=== PATIENT | female | born 1975 | race Caucasian/White ===

== ENCOUNTER 2020-04-10 07:56 | Outpatient (REF) | payer BC, SELFPAY ==
[2020-04-10 11:23] LABS: MANUAL DIFF FLAG NO
[2020-04-10 11:32] LABS: Basophils Percent Auto 0.6 % (0-2); Eosinophils Absolute Auto 0.2 X10*3/uL (0.0-0.4); Eosinophils Percent Auto 2.3 % (0-4); Hematocrit 43.4 % (37-47); Hemoglobin 14.7 g/dl (12.0-16.0); Imm Gran Abs Auto 0.02 X10*3/uL (0.00-0.03); Imm Gran Pct Auto 0.3 % (0.0-0.4); Lymphocytes Absolute Auto 2.3 X10*3/uL (1.2-4.9); Mean Corpuscular HGB Conc 33.9 g/dl (31.0-35.0); Mean Corpuscular Hemoglobin 30.5 pg (27.0-33.0); Mean Platelet Volume 10.3 fL (9.4-12.3); Monocytes Absolute Auto 0.4 X10*3/uL (0.1-1.2); Monocytes Percent Auto 5.9 % (2-11); Neutrophils Absolute Auto 4.1 X10*3/uL (2.0-8.3); Neutrophils Percent Auto 57.9 % (45-73); Platelet Count 294 X10*3/uL (160-400); Red Blood Count 4.82 X10*6/uL (4.20-5.50); Red Cell Distribution Width 12.3 % (11.0-16.0)
[2020-04-10 11:47] LABS: Alanine Aminotransferase 14 U/L (0-31); Albumin Level 4.4 g/dL (3.5-5.0); Alkaline Phosphatase 49 U/L (39-117); Anion Gap 12 (12-20); Aspartate Amino Transferase 11 U/L (5-31); Bilirubin Total 0.8 mg/dL (0.0-1.0); Blood Urea Nitrogen 12 mg/dL (9-16); Calcium 8.8 mg/dL (8.4-10.2); Carbon Dioxide 26 mmol/L (22-29); Chloride 108 mmol/L (96-108); Cholesterol 163 mg/dL; Estimated Glomerular Filt Rate > 60; Glucose Fasting 95 mg/dL (60-99); HDL Cholesterol 36 mg/dL; LDL Cholesterol Calculated 99 mg/dl; Potassium 4.1 mmol/l (3.3-5.1); Sodium 142 mmol/L (135-145); Total Protein 7.1 g/dL (6.5-8.0); Triglycerides 144 mg/dL
[2020-04-10 11:59] LABS: Free T4 (Free Thyroxine) 1.12 ng/dL (0.71-1.85); Thyroid Stimulating Hormone 2.19 uIU/mL (0.32-4.0)
== END 2020-04-10 07:57 | disposition home or self-care (01) ==
LOC: HO.HMGCLDS 07:56
PROVIDERS: PCP Internal Medicine; Visit Provider Internal Medicine
DX: Z00.00 Encounter for general adult medical examination without abnormal findings (principal); E03.9 Hypothyroidism, unspecified
CPT/HCPCS: 36415; 80053; 80061; 84439; 84443; 85025

== ENCOUNTER 2021-09-16 09:08 | Outpatient (REF) | payer BC, SELFPAY ==
[2021-09-16 11:42] LABS: MANUAL DIFF FLAG NO
[2021-09-16 12:02] LABS: Basophils Absolute Auto 0.1 X10*3/uL (0.0-0.2); Basophils Percent Auto 0.8 % (0-2); Eosinophils Absolute Auto 0.1 X10*3/uL (0.0-0.4); Eosinophils Percent Auto 1.8 % (0-4); Hematocrit 43.5 % (37.0-47.0); Hemoglobin 14.5 g/dl (12.0-16.0); Imm Gran Abs Auto 0.02 X10*3/uL (0.00-0.03); Imm Gran Pct Auto 0.3 % (0.0-0.4); Lymphocytes Percent Auto 33.9 % (20-40); Mean Corpuscular HGB Conc 33.3 g/dl (31.0-35.0); Mean Corpuscular Volume 89.9 fL (80.0-98.0); Mean Platelet Volume 10.7 fL (9.4-12.3); Monocytes Absolute Auto 0.4 X10*3/uL (0.1-1.2); Monocytes Percent Auto 6.7 % (2-11); Neutrophils Absolute Auto 3.4 x10*3/uL (2.0-8.3); Neutrophils Percent Auto 56.5 % (45-73); Platelet Count 268 X10*3/uL (160-400); Red Blood Count 4.84 X10*6/uL (4.20-5.50); Red Cell Distribution Width 12.6 % (11.0-16.0)
[2021-09-16 12:47] LABS: Alanine Aminotransferase 12 U/L (0-31); Albumin Level 4.4 g/dL (3.5-5.0); Alkaline Phosphatase 47 U/L (39-117); Aspartate Amino Transferase 12 U/L (5-31); Blood Urea Nitrogen 12 mg/dL (9-16); Calcium 8.7 mg/dL (8.4-10.2); Cholesterol 176 mg/dL; Estimated Glomerular Filt Rate > 60; Glucose Fasting 102 mg/dL (60-99); HDL Cholesterol 35 mg/dL; LDL Cholesterol Calculated 102 mg/dl; Total Protein 7.2 g/dL (6.5-8.0); Triglycerides 197 mg/dL
[2021-09-16 12:53] LABS: Free T4 (Free Thyroxine) 1.21 ng/dL (0.71-1.85)
[2021-09-16 12:58] LABS: Anion Gap 14 (12-20); Carbon Dioxide 25 mmol/L (22-29); Chloride 108 mmol/L (96-108); Potassium 4.5 mmol/L (3.3-5.1); Sodium 142 mmol/L (135-145)
== END 2021-09-16 09:09 | disposition home or self-care (01) ==
LOC: HO.HMGCLDS 09:08
PROVIDERS: PCP Internal Medicine; Visit Provider Internal Medicine
DX: I10 Essential (primary) hypertension (principal); E03.9 Hypothyroidism, unspecified
CPT/HCPCS: 36415; 80053; 80061; 84439; 84443; 85025

== ENCOUNTER 2022-04-06 09:43 | Outpatient (REF) | payer BC, SELFPAY ==
[2022-04-06 10:31] LABS: MANUAL DIFF FLAG NO
[2022-04-06 10:41] LABS: Basophils Absolute Auto 0.1 X10*3/uL (0.0-0.2); Basophils Percent Auto 0.7 % (0-2); Eosinophils Absolute Auto 0.1 X10*3/uL (0.0-0.4); Eosinophils Percent Auto 1.9 % (0-4); Hematocrit 42.3 % (37.0-47.0); Hemoglobin 14.4 g/dl (12.0-16.0); Imm Gran Abs Auto 0.01 X10*3/uL (0.00-0.03); Imm Gran Pct Auto 0.1 % (0.0-0.4); Lymphocytes Absolute Auto 2.1 X10*3/uL (1.2-4.9); Lymphocytes Percent Auto 31.7 % (20-40); Mean Corpuscular Hemoglobin 30.3 pg (27.0-33.0); Mean Corpuscular Volume 88.9 fL (80.0-98.0); Mean Platelet Volume 9.8 fL (9.4-12.3); Monocytes Absolute Auto 0.4 X10*3/uL (0.1-1.2); Monocytes Percent Auto 6.2 % (2-11); Neutrophils Percent Auto 59.4 % (45-73); Platelet Count 243 X10*3/uL (160-400); Red Blood Count 4.76 X10*6/uL (4.20-5.50); Red Cell Distribution Width 12.6 % (11.0-16.0); White Blood Count 6.8 X10*3/uL (4.8-10.8)
[2022-04-06 11:15] LABS: Anion Gap 8 (12-20); Blood Urea Nitrogen 9 mg/dL (9-16); Calcium 8.8 mg/dL (8.4-10.2); Carbon Dioxide 28 mmol/L (22-29); Chloride 109 mmol/L (96-108); Estimated Glomerular Filt Rate > 60; Glucose Random 102 mg/dL (60-115); Potassium 4.2 mmol/L (3.3-5.1); Sodium 141 mmol/L (135-145)
[2022-04-06 11:34] LABS: Vitamin B12 411 pg/mL (200-900)
== END 2022-04-06 09:44 | disposition home or self-care (01) ==
LOC: HO.10HDL 09:43
PROVIDERS: Visit Provider Internal Medicine
DX: I10 Essential (primary) hypertension (principal); E03.9 Hypothyroidism, unspecified; R53.83 Other fatigue
CPT/HCPCS: 36415; 80048; 82607; 84439; 84443; 85025

== ENCOUNTER 2023-01-15 12:28 | Outpatient (REF) | payer BC, SELFPAY ==
[2023-01-15 13:32] LABS: MANUAL DIFF FLAG NO
[2023-01-15 13:53] LABS: Basophils Absolute Auto 0.1 X10*3/uL (0.0-0.2); Basophils Percent Auto 0.5 % (0-2); Eosinophils Absolute Auto 0.1 X10*3/uL (0.0-0.4); Eosinophils Percent Auto 0.8 % (0-4); Hematocrit 38.8 % (37.0-47.0); Hemoglobin 13.4 g/dl (12.0-16.0); Imm Gran Abs Auto 0.04 X10*3/uL (0.00-0.03); Imm Gran Pct Auto 0.4 % (0.0-0.4); Lymphocytes Absolute Auto 1.8 X10*3/uL (1.2-4.9); Lymphocytes Percent Auto 17.1 % (20-40); Mean Corpuscular HGB Conc 34.5 g/dl (31.0-35.0); Mean Corpuscular Volume 89.8 fL (80.0-98.0); Mean Platelet Volume 10.2 fL (9.4-12.3); Monocytes Absolute Auto 0.6 X10*3/uL (0.1-1.2); Monocytes Percent Auto 5.3 % (2-11); Neutrophils Absolute Auto 8.1 x10*3/uL (2.0-8.3); Neutrophils Percent Auto 75.9 % (45-73); Platelet Count 277 X10*3/uL (160-400); Red Blood Count 4.32 X10*6/uL (4.20-5.50); Red Cell Distribution Width 12.6 % (11.0-16.0); White Blood Count 10.7 X10*3/uL (4.8-10.8)
[2023-01-15 14:42] LABS: Anion Gap 12 (12-20); Blood Urea Nitrogen 13 mg/dL (9-16); Calcium 10.1 mg/dL (8.4-10.2); Carbon Dioxide 25 mmol/L (22-29); Chloride 107 mmol/L (96-108); Cholesterol 175 mg/dL (<200); Estimated Glomerular Filt Rate > 60; Glucose Random 109 mg/dL (60-115); Sodium 140 mmol/L (135-145)
[2023-01-15 14:47] LABS: Free T4 (Free Thyroxine) 1.08 ng/dL (0.71-1.85); Thyroid Stimulating Hormone 1.55 uIU/mL (0.32-4.0)
== END 2023-01-15 12:29 | disposition home or self-care (01) ==
LOC: HO.HMGCLDS 12:28
PROVIDERS: PCP Internal Medicine; Visit Provider Internal Medicine
DX: I10 Essential (primary) hypertension (principal); E03.9 Hypothyroidism, unspecified
CPT/HCPCS: 36415; 80048; 82465; 84439; 84443; 85025

== ENCOUNTER 2023-05-24 09:53 | Outpatient (REF) | payer OTHER, SELFPAY ==
[2023-05-24 11:05] LABS: MANUAL DIFF FLAG NO
[2023-05-24 11:07] LABS: Basophils Absolute Auto 0.1 X10*3/uL (0.0-0.2); Basophils Percent Auto 0.6 % (0-2); Eosinophils Absolute Auto 0.1 X10*3/uL (0.0-0.4); Eosinophils Percent Auto 1.6 % (0-4); Hematocrit 42.6 % (37.0-47.0); Hemoglobin 14.7 g/dl (12.0-16.0); Imm Gran Abs Auto 0.02 X10*3/uL (0.00-0.03); Imm Gran Pct Auto 0.3 % (0.0-0.4); Lymphocytes Percent Auto 26.2 % (20-40); Mean Corpuscular HGB Conc 34.5 g/dl (31.0-35.0); Mean Corpuscular Hemoglobin 30.3 pg (27.0-33.0); Mean Corpuscular Volume 87.8 fL (80.0-98.0); Mean Platelet Volume 10.4 fL (9.4-12.3); Monocytes Absolute Auto 0.5 X10*3/uL (0.1-1.2); Monocytes Percent Auto 6.5 % (2-11); NRBC Pct Auto 0.5 /100WBC (0.0-0.2); Neutrophils Percent Auto 64.8 % (45-73); Platelet Count 223 X10*3/uL (160-400); Red Blood Count 4.85 X10*6/uL (4.20-5.50); White Blood Count 7.7 X10*3/uL (4.8-10.8)
[2023-05-24 11:47] LABS: Alanine Aminotransferase 34 U/L (0-31); Alkaline Phosphatase 50 U/L (39-117); Anion Gap 9 (12-20); Aspartate Amino Transferase 18 U/L (5-31); Bilirubin Total 0.6 mg/dL (0.0-1.0); Blood Urea Nitrogen 10 mg/dL (9-16); Calcium 8.9 mg/dL (8.4-10.2); Carbon Dioxide 29 mmol/L (22-29); Chloride 105 mmol/L (96-108); Estimated Glomerular Filt Rate > 60; Glucose Random 91 mg/dL (60-115); Potassium 4.1 mmol/L (3.3-5.1); Sodium 139 mmol/L (135-145); Total Protein 7.2 g/dL (6.5-8.0)
[2023-05-24 11:50] LABS: Free T4 (Free Thyroxine) 0.97 ng/dL (0.71-1.85); Thyroid Stimulating Hormone 2.57 uIU/mL (0.32-4.0)
[2023-05-25 14:49] LABS: Follicle Stimulating Hormone 2.2 mIU/mL; Lutenizing Hormone 2.4 mIU/mL
== END 2023-05-24 09:54 | disposition home or self-care (01) ==
LOC: HO.10HDL 09:53
PROVIDERS: Visit Provider Internal Medicine
DX: I10 Essential (primary) hypertension (principal); E03.9 Hypothyroidism, unspecified; R63.5 Abnormal weight gain
CPT/HCPCS: 36415; 80053; 83001; 83002; 84439; 84443; 85025

== ENCOUNTER 2023-07-05 14:40 | Outpatient (REF) | payer OTHER, SELFPAY ==
[2023-07-05 15:02] LABS: IDNOW Serial# 08D9AD1C; Strep A Nucleic Acid Negative (Negative)
== END 2023-07-05 14:41 | disposition home or self-care (01) ==
LOC: HO.LNP 14:40
PROVIDERS: Visit Provider Internal Medicine
DX: J06.9 Acute upper respiratory infection, unspecified (principal); N18.9 Chronic kidney disease, unspecified
CPT/HCPCS: 87070; 87147; 87651

== ENCOUNTER 2024-01-06 08:52 | Outpatient (REF) | payer OTHER, SELFPAY ==
[2024-01-06 10:55] LABS: MANUAL DIFF FLAG NO
[2024-01-06 11:01] LABS: Basophils Percent Auto 0.6 % (0-2); Eosinophils Absolute Auto 0.1 X10*3/uL (0.0-0.4); Hematocrit 41.5 % (37.0-47.0); Hemoglobin 14.2 g/dl (12.0-16.0); Imm Gran Abs Auto 0.01 X10*3/uL (0.00-0.03); Imm Gran Pct Auto 0.2 % (0.0-0.4); Lymphocytes Absolute Auto 2.2 X10*3/uL (1.2-4.9); Lymphocytes Percent Auto 34.1 % (20-40); Mean Corpuscular HGB Conc 34.2 g/dl (31.0-35.0); Mean Corpuscular Volume 87.7 fL (80.0-98.0); Mean Platelet Volume 10.6 fL (9.4-12.3); Monocytes Absolute Auto 0.4 X10*3/uL (0.1-1.2); Monocytes Percent Auto 6.4 % (2-11); Neutrophils Absolute Auto 3.6 x10*3/uL (2.0-8.3); Neutrophils Percent Auto 56.7 % (45-73); Platelet Count 208 X10*3/uL (160-400); Red Blood Count 4.73 X10*6/uL (4.20-5.50); Red Cell Distribution Width 12.2 % (11.0-16.0); White Blood Count 6.4 X10*3/uL (4.8-10.8)
[2024-01-06 11:32] LABS: Alanine Aminotransferase 15 U/L (0-31); Albumin Level 4.1 g/dL (3.5-5.0); Alkaline Phosphatase 48 U/L (39-117); Anion Gap 11 (12-20); Aspartate Amino Transferase 15 U/L (5-31); Bilirubin Total 0.6 mg/dL (0.0-1.0); Blood Urea Nitrogen 12 mg/dL (9-16); Calcium 9.6 mg/dL (8.4-10.2); Carbon Dioxide 29 mmol/L (22-29); Chloride 108 mmol/L (96-108); Cholesterol 194 mg/dL (<200); Estimated Glomerular Filt Rate > 60; Glucose Fasting 102 mg/dL (60-99); HDL Cholesterol 42 mg/dL (>40); LDL Cholesterol Calculated 123 mg/dL (<100); Potassium 4.7 mmol/L (3.3-5.1); Sodium 143 mmol/L (135-145); Total Protein 7.1 g/dL (6.5-8.0); Triglycerides 149 mg/dL (<150)
[2024-01-06 11:35] LABS: Free T4 (Free Thyroxine) 1.03 ng/dL (0.71-1.85); Thyroid Stimulating Hormone 1.17 uIU/mL (0.32-4.0)
== END 2024-01-06 08:53 | disposition home or self-care (01) ==
LOC: HO.10HDL 08:52
PROVIDERS: Visit Provider Internal Medicine
DX: I10 Essential (primary) hypertension (principal); E03.9 Hypothyroidism, unspecified; E78.00 Pure hypercholesterolemia, unspecified
CPT/HCPCS: 36415; 80053; 80061; 84439; 84443; 85025

== ENCOUNTER 2024-04-25 09:40 | Outpatient (REF) | payer OTHER, SELFPAY ==
[2024-04-25 13:34] LABS: Appearance Urine Clear; Color Urine Yellow; Glucose Urine UA Negative (Negative); Leukocyte Esterase Urine Negative (Negative); Nitrite Urine Negative (Negative); Specific Gravity - Urine <= 1.005 (1.005-1.025); Urine Blood Negative (Negative); Urine Ketones Negative (Negative); Urine Protein Negative (Neg-Trace)
== END 2024-04-25 09:41 | disposition home or self-care (01) ==
LOC: HO.HMGCLDS 09:40
PROVIDERS: PCP Internal Medicine; Visit Provider Internal Medicine
DX: R30.0 Dysuria (principal)
CPT/HCPCS: 81003; 87086